=== PATIENT | male | born 1995 | race Two or more races ===

== ENCOUNTER 2022-03-24 08:16 | Day surgery (SDC) | payer BC ==
[2022-03-23 11:36] VITALS: BMI 23.0
[2022-03-24] MEDS ORDERED: Ropivacaine 0.5% HCl/PF (150 MG/30 ML VIAL) ONE (09:42)
[2022-03-24] MEDS ORDERED: Midazolam HCl 2 mg/2 ml Vial ONE (09:42)
[2022-03-24] MEDS ORDERED: Fentanyl 100 MCG/2 ML VIAL ONE (09:42)
[2022-03-24] MEDS ORDERED: CEFAZOLIN 2 GM VIAL ONE (10:01)
[2022-03-24] MEDS ORDERED: Sodium Chloride 0.9% 100 ML ONE (10:01)
[2022-03-24] MEDS ORDERED: HYDROmorphone 0.5 MG/0.5 ML SYRINGE ONE (10:08)
[2022-03-24] MEDS ORDERED: PROPOFOL 200 MG/20 ML VIAL ONE (10:11)
[2022-03-24] MEDS ORDERED: Ketorolac Tromethamine 30 MG/ML VIAL ONE (10:11)
[2022-03-24] MEDS ORDERED: Dexamethasone 20 MG/5 ML VIAL ONE (10:11)
[2022-03-24] MEDS ORDERED: Ondansetron PF 4 MG/2 ML Vial ONE (10:11)
[2022-03-24] MEDS ORDERED: Meperidine HCl/PF 25 MG/ML VIAL ONE (11:50)
[2022-03-24] MEDS ORDERED: fentaNYL Citrate/PF 100 MCG/2 ML SYRINGE ONE (12:06)
[2022-03-24] MEDS ORDERED: HYDROcodone/Acetaminophen 5/325 mg Tablet ONE (13:30)
== END 2022-03-24 14:23 | disposition home or self-care (01) ==
LOC: SDC 08:16
PROVIDERS: ATTEND Orthopaedic Surgery
PROC: 0QSJ04Z Reposition Right Fibula with Internal Fixation Device, Open Approach (ICD-10-PCS; principal; 2022-03-24)
PROC: 0QSG04Z Reposition Right Tibia with Internal Fixation Device, Open Approach (ICD-10-PCS; principal; 2022-03-24)
DX: S82.851A Displaced trimalleolar fracture of right lower leg, initial encounter for closed fracture (principal); X50.1XXA Overexertion from prolonged static or awkward postures, initial encounter; Y93.21 Activity, ice skating
CPT/HCPCS: 76000; C1713; C1776; J0690; J1100; J1170; J1885; J2175; J2250; J2405; J2704; J2795; J3010; J3490